=== PATIENT | male | born 1955 | race Caucasian/White ===

== ENCOUNTER 2021-07-01 06:44 | Inpatient (IN) ==
[~2021-07-01 06:44] MED LIST: Lidocaine HCL 4 ML Topical Solution (Laryng-O-Jet Kit Sterile Pak) TP ONE
[2021-07-01] MEDS ORDERED: *HR* Heparin 5,000 UNIT/ML VIAL ONE (06:45)
[2021-07-01] MEDS ORDERED: *HR* Phenylephrine 10 MG/ML VIAL ONE (06:46)
[2021-07-01] MEDS ORDERED: *HR* Propofol 200 MG/20 ML VIAL IVP ONE (06:46)
[2021-07-01] MEDS ORDERED: Ondansetron 4 MG/2 ML VIAL ONE (06:46)
[2021-07-01] MEDS ORDERED: Lidocaine -MPF 2% 5 ML VIAL ONE (06:46)
[2021-07-01] MEDS ORDERED: *HR* Rocuronium Bromide 50 MG/5 ML VIAL ONE ×2 (06:46→09:04)
[2021-07-01] MEDS ORDERED: *HR* Midazolam HCl 2 MG/2 ML VIAL ONE (06:47)
[2021-07-01] MEDS ORDERED: *HR* FentaNYL (PF) 100 MCG/2 ML VIAL ONE (06:47)
[2021-07-01] MEDS ORDERED: Bupivacaine-MPF 0.25% 10 ML VIAL ONE (07:14)
[2021-07-01] MEDS ORDERED: Heparin 1,000 UNITS/500 mL 500 ML ONE (07:14)
[2021-07-01] MEDS ORDERED: CeFAZolin Syr 2,000MG/20 ML 2,000 MG/20 ML SYRINGE IVPB ONE (07:14)
[2021-07-01] MEDS ORDERED: Ringers Solution, Lactated 1,000 ML IVC SCH (07:15)
[2021-07-01] MEDS ORDERED: Protamine Sulfate 50 MG/5 ML VIAL IVP ONE (07:17)
[2021-07-01] MEDS ORDERED: Ondansetron 4 MG/2 ML VIAL IVP PRN (07:50)
[2021-07-01] MEDS ORDERED: *HR* OxyCODONE Immed Rel 5 MG TABLET PO PRN ×2 (07:50→14:53)
[2021-07-01] MEDS ORDERED: *HR* HYDROmorphone PF 0.5 MG/0.5 ML SYRINGE IVP PRN (07:50)
[2021-07-01] MEDS ORDERED: Vancomycin 1,000 MG, Sodium Chloride IRRigation 1,000 ML IR ONE (08:15)
[2021-07-01] MEDS ORDERED: EPHEDrine 50 MG/ML VIAL ONE (09:12)
[2021-07-01] MEDS ORDERED: 0.9 % Sodium Chloride 1,000 ML IVC SCH (14:53)
[2021-07-01] MEDS ORDERED: *HR* HYDROcodone/Acet 5/325 mg TABLET PO PRN (14:53)
[2021-07-01] MEDS ORDERED: Acetaminophen 325 MG TABLET PO PRN (14:53)
[2021-07-01] MEDS ORDERED: Naloxone 0.4 MG/ML INJ IVP PRN ×2 (14:53)
[2021-07-01] MEDS: lisinopriL 10 MG TABLET PO SCH (15:25)
[2021-07-01] MEDS: Aspirin Enteric Coated 81 MG Tablet PO SCH (15:25)
[2021-07-01] MEDS: CeFAZolin 2 GM/120 ML BAG IVPB SCH ×2 (15:26→23:12)
[2021-07-01 17:31] LABS: Basophils % 0.2 %; Hemoglobin 16.2 g/dL (12.9-16.9); Immature Granulocytes % 0.2 % (0-4); Lymphocytes # 0.7 K/mcL (0.6-4.6); Lymphocytes % 12.7 %; Mean Corpuscular HGB Conc 33.8 g/dL (31.6-35.5); Mean Corpuscular Hemoglobin 32.8 pg (28.0-33.3); Mean Corpuscular Volume 97.2 fL (83.0-100.0); Mean Platelet Volume 9.7 fL (9.4-12.4); Monocytes # 0.2 K/mcL (0.0-1.3); Monocytes % 2.8 %; Neutrophils # 4.4 K/mcL (1.6-8.9); Platelet Count 274 K/mcL (140-400); Red Blood Count 4.94 M/mcL (4.19-5.50); Segmented Neutrophils % 84.1 %; White Blood Count 5.3 K/mcL (4.3-11.1)
[2021-07-02 03:40] VITALS: O2SAT 98
[2021-07-02] MEDS ORDERED: *HR* Heparin 5,000 UNIT/ML VIAL SQ SCH ×2 (06:00)
[2021-07-02 07:37] VITALS: BP 130/69; TEMP 98.1
[2021-07-02] MEDS: Aspirin Enteric Coated 81 MG Tablet PO SCH (08:16)
[2021-07-02] MEDS: lisinopriL 10 MG TABLET PO SCH (08:17)
[2021-07-02 09:20] VITALS: PULSE 77
== END 2021-07-02 12:08 | disposition home or self-care (01) | DRG 272 ==
LOC: SAMDAY 06:44 → 2NNU 13:22
PROVIDERS: ADMIT Surgery; ATTEND Surgery